=== PATIENT | female | born 1985 | race Hispanic/Latino ===

== ENCOUNTER 2019-04-12 10:52 | Inpatient (IN) | payer OTHER ==
[~2019-04-12] VITALS: Ht 175.3 cm; Wt 86.3 kg
[2019-04-12] MEDS ORDERED: CLONIDINE HCL 0.2 MG TAB PO ONE (11:15)
[2019-04-12] MEDS ORDERED: SODIUM CHLORIDE 0.9% 1000ML 1,000 ML IV STA (12:02)
--- NOTE | 2019-04-12 12:20 | Diagnostic Imaging Report ---
EXAMINATION: CXR 2 VIEW - HOPD INDICATION: Shortness of breath for 2 days ^[id number] ^1205 COMPARISON: None FINDINGS: PA and lateral views TUBES and LINES: None. LUNGS/PLEURA: Bilateral pleural effusions and bibasilar atelectasis. Subtle airspace opacity in the anterior basal segment of the left lower lobe. Trace interstitial edema. HEART AND MEDIASTINUM: The cardiomediastinal silhouette is unremarkable.. BONES AND SOFT TISSUES: No focal osseous lesions. Soft tissues are unremarkable. UPPER ABDOMEN: Unremarkable. IMPRESSION: Bilateral pleural effusions and bibasilar atelectasis. Subtle airspace opacity in the left lower lobe may represent pneumonia. Signed by: Dr. Bryon Billy MD on 04/12/2019 12:16 PM
[2019-04-12] MEDS ORDERED: CEFTRIAXONE SOD 1 GM VIAL IV ONE (12:30)
[2019-04-12] MEDS ORDERED: CLONIDINE HCL 0.1 MG TAB ONE (12:33)
[2019-04-12] MEDS ORDERED: CEFTRIAXONE SOD 1 GM/NS 50 ML 50 ML IV ONE (12:34)
[2019-04-12] MEDS ORDERED: SODIUM CHLORIDE 0.9% 1000ML 1,000 ML ONE (12:34)
[2019-04-12] MEDS ORDERED: ASPIRIN 81 MG CHEW TAB PO ONE (12:45)
[2019-04-12] MEDS ORDERED: ACETAMINOPHEN 325 MG TAB PO ONE (12:45)
[2019-04-12] MEDS ORDERED: NITROGLYCERIN 2% OINT 1 GM PKT TOP ONE (12:45)
[2019-04-12] MEDS ORDERED: ONDANSETRON HCL INJ 2MG/ML 2ML 2 MG/ML VIAL IV PRN (13:00)
[2019-04-12] MEDS ORDERED: ENOXAPARIN SODIUM INJ 100 MG/ML SYR SC SCH (13:00)
[2019-04-12] MEDS ORDERED: FAMOTIDINE 20 MG TAB PO SCH (13:00)
--- OUTSIDE RECORDS SUMMARY | 2019-04-12 13:09 | XMS REPORT ---
Author [facility] Address Unknown Phone Unavailable Care Team Providers Care Filter Changer Name Role Phone Marjan CANDELARIO Unavailable Unavailable Problems This patient has no known problems. Allergies, Adverse Reactions, Alerts This patient has no known allergies or adverse reactions. Medications This patient has no known medications. Results Test Description Test Time Test Comments Text Results Atomic Results Result Comments CXR 2 VIEW - HOPD 2019-04-12 12:15:00 [place] [address] Patient Name: CASS MCCULLOUGH MR #: [id number] : 1985 Age/Sex: 34/F Req #: [id number] [facility] Physician: Ordered by: EDGAR CANDELARIO MD Report #: [id number] Location: [facility] Room/Bed: Procedure: [id number] HOPD/CXR 2 VIEW - HOPD Exam Date: 04/12/19 Exam Time: 1205 REPORT STATUS: Signed EXAMINATION: CXR 2 VIEW - HOPD INDICATION: Shortness of breath for 2 days [id number] COMPARISON: None FINDINGS: PA and lateral views TUBES and LINES: None. LUNGS/PLEURA: Bilateral pleural effusions and bibasilar atelectasis. Subtle airspace opacity in the anterior basal segment of the left lower lobe. Trace interstitial edema. HEART AND MEDIASTINUM: The cardiomediastinal silhouette is unremarkable.. BONES AND SOFT TISSUES: No focal osseous lesions. Soft tissues are unremarkable. UPPER ABDOMEN: Unremarkable. IMPRESSION: Bilateral pleural effusions and bibasilar atelectasis. Subtle airspace opacity in the left lower lobe may represent pneumonia. Signed by: Dr. Frandy Billy MD on 04/12/2019 12:16 PM Dictated By: FRANDY BILLY MD 1216 Transcribed By: AURELIO on 04/12/19 1216 COPY TO: EDGAR CANDELARIO MD
[2019-04-12] MEDS: METOPROLOL TARTRATE 25 MG TAB PO SCH (13:24)
[2019-04-12] MEDS ORDERED: ASPIRIN 81 MG CHEW TAB ONE (13:30)
[2019-04-12] MEDS ORDERED: NITROGLYCERIN 2% OINT 1 GM PKT ONE (13:31)
[2019-04-12] MEDS ORDERED: ACETAMINOPHEN 325 MG TAB ONE (13:31)
[2019-04-12] MEDS ORDERED: FAMOTIDINE 20 MG/2 ML VIAL IV ONE (13:31)
[2019-04-12] MEDS ORDERED: ENOXAPARIN SODIUM INJ 100 MG/ML SYR SC ONE (13:31)
[2019-04-12] MEDS ORDERED: DEXTROSE 50% SYRINGE 50 ML IV PRN ×2 (13:45→22:00)
--- NOTE | 2019-04-12 14:20 | NUR ---
Called [facility] to transport pt to room 212
--- NOTE | 2019-04-12 14:28 | NUR ---
Report to ANTONIA Gamez
[2019-04-12 15:53] VITALS: BP 117/77
[2019-04-12 16:01] VITALS: BP 117/77
[2019-04-12] MEDS: INSULIN REGULAR, HUMAN 100 UNIT/1 ML 3ML VIAL SQ SCH ×2 (16:58→20:57)
[2019-04-12] MEDS: NITROGLYCERIN 2% OINT 1 GM PKT TOP SCH (17:00)
[2019-04-12] MEDS ORDERED: POTASSIUM CHLORIDE 20 MEQ TAB CR PO ONE (19:30)
[2019-04-12 20:00] VITALS: BP 114/80
[2019-04-12 20:30] VITALS: BP 114/80
[2019-04-12] MEDS ORDERED: SODIUM CHLORIDE 0.9% 250ML 250 ML ONE (20:44)
[2019-04-12] MEDS: SIMVASTATIN 40 MG TAB PO SCH (20:57)
[2019-04-12] MEDS: CEFTRIAXONE SOD 1 GM/NS 50 ML 50 ML IV SCH (20:57)
--- NOTE | 2019-04-12 21:00 | NUR ---
attending physician on unit rounding on patient. received new orders for patient.
[2019-04-12 21:14] LABS: BASOPHILS % 0.4 % (0.0-1.0); EOSINOPHILS # (AUTO) 0.2 (0.0-0.4); EOSINOPHILS % 1.7 % (0.0-6.0); HEMATOCRIT 30.2 % (34.2-44.1); HEMOGLOBIN 9.1 g/dL (12.0-16.0); LYMPHOCYTES # (AUTO) 2.9 (1.0-3.2); LYMPHOCYTES % 32.3 % (18.0-39.1); MEAN CORPUSCULAR HEMOGLOBIN 25.3 pg (28-32); MEAN CORPUSCULAR HGB CONC 30.1 g/dL (31-35); MEAN CORPUSCULAR VOLUME 84.1 fL (81-99); MONOCYTES # (AUTO) 0.7 (0.2-0.8); MONOCYTES % 7.3 % (4.4-11.3); NEUTROPHILS # (AUTO) 5.3 (2.1-6.9); PLATELET COUNT 383 x10e3/uL (140-360); RED BLOOD COUNT 3.59 x10e6/uL (3.6-5.1); RED CELL DISTRIBUTION WIDTH 14.6 % (11.7-14.4)
[2019-04-12 21:29] LABS: ANION GAP 18.4 mmol/L (8-16); BLOOD UREA NITROGEN 18 mg/dL (7-26); BUN/CREATININE RATIO 23 (6-25); CALCIUM 8.3 mg/dL (8.4-10.2); CARBON DIOXIDE 19 mmol/L (22-29); CHLORIDE 104 mmol/L (98-107); EST GLOMERULAR FILTRATION RATE > 60 ML/MIN (60-); GLUCOSE 289 mg/dL (74-118); POTASSIUM 4.4 mmol/L (3.5-5.1); SODIUM 137 mmol/L (136-145)
--- NOTE | 2019-04-12 21:30 | NUR ---
Radiology called stating patients need's test in order for CT scan to be done.
[2019-04-12] MEDS: FUROSEMIDE INJ 10 MG/ML 4 ML VIAL IV SCH (21:35)
[2019-04-12] MEDS ORDERED: TRAZODONE HCL 50 MG TAB PO PRN (22:00)
--- NOTE | 2019-04-12 23:30 | NUR ---
Report given to ICU charge nurse. patient has been transferred to ICU for closer observation.
--- NOTE | 2019-04-12 23:35 | NUR ---
Report received from Sean KNIGHT. Pt transferred to ICU room 195.
--- NOTE | 2019-04-12 23:42 | NUR ---
Urine specimen has been collected and sent to laboratory in order for test to be obtained.
[2019-04-12 23:46] LABS: AMPHETAMINES SCREEN,URINE NEGATIVE (NEGATIVE); BENZODIAZEPINES SCREEN,URINE NEGATIVE (NEGATIVE); PHENCYCLIDINE SCREEN,URINE NEGATIVE (NEGATIVE)
[2019-04-13] VITALS (7 sets, daily range): BP systolic 92–133; BP diastolic 60–97
[2019-04-13 00:08] LABS: CREATINE KINASE MB 1.8 ng/mL (0-5.0)
[2019-04-13] MEDS ORDERED: INFLUENZA VIRUS VAC SPLIT INJ 0.5 ML SYR IM SCH (00:11)
[2019-04-13] MEDS: METOPROLOL TARTRATE 25 MG TAB PO SCH ×3 (00:26→21:55)
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
[2019-04-13 05:42] LABS: BASOPHILS % 0.3 % (0.0-1.0); EOSINOPHILS # (AUTO) 0.3 (0.0-0.4); HEMATOCRIT 24.9 % (34.2-44.1); LYMPHOCYTES # (AUTO) 2.4 (1.0-3.2); LYMPHOCYTES % 37.1 % (18.0-39.1); MEAN CORPUSCULAR HEMOGLOBIN 25.5 pg (28-32); MEAN CORPUSCULAR HGB CONC 31.3 g/dL (31-35); MEAN CORPUSCULAR VOLUME 81.4 fL (81-99); MONOCYTES # (AUTO) 0.7 (0.2-0.8); NEUTROPHILS # (AUTO) 3.1 (2.1-6.9); NEUTROPHILS % 47.1 % (38.7-80.0); RED BLOOD COUNT 3.06 x10e6/uL (3.6-5.1); RED CELL DISTRIBUTION WIDTH 14.5 % (11.7-14.4)
[2019-04-13] MEDS: NITROGLYCERIN 2% OINT 1 GM PKT TOP SCH ×4 (05:54→17:55)
[2019-04-13 06:01] LABS: HEMOGLOBIN 7.8 g/dL (12.0-16.0); PLATELET COUNT 323 x10e3/uL (140-360)
[2019-04-13 06:10] LABS: CREATINE KINASE MB 1.3 ng/mL (0-5.0)
--- NOTE | 2019-04-13 06:20 | NUR ---
Pt taken to CT scan of chest with contract and returned pt room without event.
[2019-04-13 06:24] LABS: ANION GAP 12.2 mmol/L (8-16); BLOOD UREA NITROGEN 15 mg/dL (7-26); BUN/CREATININE RATIO 21 (6-25); CALCIUM 8.2 mg/dL (8.4-10.2); CARBON DIOXIDE 24 mmol/L (22-29); CHLORIDE 103 mmol/L (98-107); CHOL/HDL RATIO 4.8 (3.0-3.6); CHOLESTEROL 176 MD/DL (0-199); CREATININE, SERUM 0.71 mg/dL (0.57-1.11); EST GLOMERULAR FILTRATION RATE > 60 ML/MIN (60-); GLUCOSE 213 mg/dL (74-118); HDL CHOLESTEROL 37 MG/DL (40-60); LDL CHOLESTEROL 90 MG/DL (60-130); POTASSIUM 4.2 mmol/L (3.5-5.1); SODIUM 135 mmol/L (136-145); TRIGLYCERIDES 246 MG/DL (0-149)
[2019-04-13] MEDS ORDERED: SODIUM CHLORIDE 0.9% 50ML 50 ML ONE (06:32)
[2019-04-13] MEDS ORDERED: IOPAMIDOL 370 MG/ML 200 ML INFUS..BTL INJ ONE (06:32)
[2019-04-13] MEDS: FUROSEMIDE INJ 10 MG/ML 4 ML VIAL IV SCH ×3 (06:36→21:55)
[2019-04-13] MEDS: ENOXAPARIN SODIUM INJ 100 MG/ML SYR SC SCH ×2 (06:36→17:46)
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
[2019-04-13] MEDS: INSULIN REGULAR, HUMAN 100 UNIT/1 ML 3ML VIAL SQ SCH ×4 (08:34→21:55)
[2019-04-13] MEDS: ASPIRIN 325 MG TAB EC PO SCH (08:41)
[2019-04-13] MEDS: LISINOPRIL 10 MG TAB PO SCH (08:42)
[2019-04-13] MEDS: FAMOTIDINE 20 MG TAB PO SCH ×2 (08:42→21:55)
[2019-04-13] MEDS ORDERED: FUROSEMIDE INJ 10 MG/ML 2 ML VIAL IV SCH (09:00)
[2019-04-13] MEDS: ACETAMINOPHEN 325 MG TAB PO PRN (12:03)
--- NOTE | 2019-04-13 13:18 | NUR ---
dr. barry called and notified of new consult ordered yesterday.
--- NOTE | 2019-04-13 15:57 | NUR ---
PT NOT IN ROOM IN MRI UNABLE TO DO DISCHARGE PLAN ASSESSMENT
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
[2019-04-13] MEDS: CEFTRIAXONE SOD 1 GM/NS 50 ML 50 ML IV SCH ×2 (19:30→21:55)
--- NOTE | 2019-04-13 19:56 | NUR ---
Nutrition Screen Note RD Recommendation for Physician: -Recommend diabetic/low sodium diet Plan of Care: RD following, monitoring for tolerance and adequacy Nutrition reason for involvement: diagnosis congestive cardiac failure Primary Diagnose(s): congestive cardiac failure, cystitis, myocardial infarction, pneumonia, and UTI PMH: diabetes, HTN, HLD Ht: 69 in Wt:194 lb BMI: 28.6 kg/m2 IBW:[address] Assessment: (04/13/19) Chart reviewed. Labs and meds reviewed. Pt is a 34 year old female admitted with congestive cardiac failure, cystitis, myocardial infarction, pneumonia, and UTI. Pt stated she has been eating >50% of her meals. Per documentation, pt consumed 50-75% of meals today. Pt reported she had recently gained weight. No N/V/D/C reported and no chewing/swallowing issues. Will continue to monitor Current Diet: 1800 kcal ADA diet Malnutrition Evaluation (04/13/19) The patient does not meet criteria for a specified degree of malnutrition at this time. Will re-evaluate at follow-up as appropriate. Diet Education Needs Assessment: Pt was interested in diet education Learner(s): pt Barriers: 5 minutes Cultural/Language Modifications: No cultural/language modifications noted. Readiness: acceptance, eager Method: explanation/discussion, handout Topics: diabetic diet and low sodium diet Understanding/Compliance: Pt verbalized understanding Nutrition Care Level: low Signed: Sonja Ram, RD, LD
[2019-04-13] MEDS ORDERED: IRON SUCROSE 100 MG in SODIUM CHLORIDE 0.9% 100 ML 100 ML IV ONE (20:30)
[2019-04-13 21:27] LABS: FERRITIN 7.29 ng/mL (4.63-204.00)
[2019-04-13] MEDS: SIMVASTATIN 40 MG TAB PO SCH (21:55)
[2019-04-13] MEDS ORDERED: TRAZODONE HCL 50 MG TAB PO ONE (22:30)
[2019-04-14] VITALS (13 sets, daily range): BP systolic 93–120; BP diastolic 64–87
--- NOTE | 2019-04-14 00:08 | Consultation ---
DATE OF CONSULTATION: 04/13/2019 Neurology Consult Note HISTORY OF PRESENT ILLNESS: Ms. Ramos is a 34-year-old woman with past medical history significant for hypertension and diabetes mellitus, not compliant with treatment, admitted to [facility] as an inpatient on April 12, 2019, with non-ST elevation myocardial infarction, acute on chronic congestive heart failure, bilateral pleural effusions, and possible pneumonia. A neurology consultation is requested for further evaluation of weakness and paresthesias affecting both arms. Ms. Ramos reports a tingling sensation from her shoulders to her wrists with sparing of the hands. While both arms are affected, the left arm is significantly more affected than the right. Occasionally, Ms. Ramos reports the tingling sensation will travel to her legs. However, the patient is quick to state the symptoms predominantly affect her arms. Ms. Ramos describes the tingling sensation is intermittent. She is not aware of any triggers for the sensation. There is nothing she can do to stop the tingling sensation. Of note, while Ms. Ramos does report a compulsion to move her arms or legs when the tingling sensation is present, movement does not improve the symptoms. Ms. Ramos does report the above described symptoms are more likely to occur in the late afternoon/throughout the night. When asked whether or not she has weakness in her hands or arms, the patient responds in the affirmative. When pressed, the patient reports she has no difficulty performing fine motor movements of the hands as well as other movements of the arms. However, she, she reports a heavy sensation affecting both arms. Ms. Ramos reports the above described symptoms began approximately 2 months ago and are gradually worsening. Ms. Ramos does not report neck pain. She does endorse occasional radicular pain affecting either arm. The patient does report participation in tasks requiring repetitive movement (i.e. typing, texting, cooking, etc.) REVIEW OF SYSTEMS: Fast heartbeat, shortness of breath, tingling of the arms and legs, radicular pain affecting either arm. Otherwise, a 12-point review of systems is negative. PAST MEDICAL HISTORY: Hypertension, diabetes mellitus, anxiety disorder. PAST SURGICAL HISTORY: section x1. PAST HOSPITALIZATIONS: Surgeries/procedures as listed, childbirth, hospitalized in 2018 with pneumonia. FAMILY MEDICAL HISTORY: Hypertension, diabetes mellitus, coronary artery disease, gastrointestinal cancer. SOCIAL HISTORY: The patient is single. Ms. Ramos is employed. 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 The patient does not report current or prior tobacco or recreational drug use. She does endorse rare alcohol use. HOME MEDICATIONS: None. Ms. Ramos reports not taking any medications for the past 2-3 months. HOSPITAL MEDICATIONS: Tylenol, aspirin, ceftriaxone, Lovenox, Pepcid, Lasix, influenza virus vaccine, Humulin R, lisinopril, metoprolol tartrate, nitroglycerin, Zofran, simvastatin, trazodone. ALLERGIES: NO KNOWN DRUG ALLERGIES. NO KNOWN FOOD ALLERGIES. NO KNOWN ALLERGIES TO LATEX. NO KNOWN ALLERGIES TO IODINE OR OTHER CONTRAST MATERIALS. PHYSICAL EXAMINATION: VITAL SIGNS: Height 69 inches, weight 194 pounds, BMI 28.6 kg/m2, blood pressure 112/97 mmHg, pulse 108 beats per minute, respiratory rate 18 breaths per minute, and oxygen saturation 95% on room air. GENERAL: The patient is awake and alert, does not appear distressed. Overweight. HEENT: Normocephalic, atraumatic. Pupils are equal, round, and reactive to light. Moist mucous membranes. NECK: Supple. No appreciable thyromegaly. No appreciable carotid bruits. CARDIOVASCULAR: S1, S2, tachycardic, regular rhythm. No murmurs, rubs, or gallops. RESPIRATORY: Diminished air movement at the bases bilaterally. EXTREMITIES: Skin is warm and dry. No clubbing, cyanosis, or edema. The posterior tibial and dorsalis pedis pulses are 2+ and symmetric. Positive Tinel's at the left cubital tunnel. SKIN: No rashes or lesions. NEUROLOGIC: Memory/Attention: The patient is awake and alert, oriented to person, place, time, and situation. Cranial Nerves: Cranial nerve I - not tested. Cranial nerve II, III, IV, and - pupils are equal and round, reactive briskly to light (from 4 mm to 2 mm). Extraocular movements are intact. No nystagmus. Cranial nerve V - sensation to light touch and pinprick is intact in the bilateral V1 through V3 distributions. Strength in the temporalis and masseter muscles is within normal limits. Cranial nerve VII - the face is symmetric as are all facial movements. Strength is within normal limits. Cranial nerve VIII - hearing is intact to finger rub bilaterally. Cranial nerve IX, X- the soft palate elevates equally and symmetrically. Cranial nerve XI - normal strength of the bilateral sternocleidomastoid and trapezius muscles. Cranial nerve XII- the tongue protrudes midline and moves symmetrically from [id number]. Strength: Bulk is normal. Strength is 5/5 in the bilateral deltoids, biceps, triceps, wrist flexors and extensors, finger flexors and extensors, intrinsic hand muscles, hip flexors, knee flexors and extensors, ankle dorsiflexion and plantar flexion, and intrinsic foot muscles. Tone is normal. DTRs: Deep tendon reflexes are 1+ and symmetric at the triceps, biceps, brachioradialis, patellas, and Achilles. Plantar responses are flexor bilaterally. Sensation: Sensation is intact to light touch and pinprick in both arms and both legs. Cerebellar: Gsczsy-coqd-opkixm and heel-webber movements are intact without dysmetria or other impairment. Gait: Deferred. Speech: Spontaneous speech is normal without appreciable dysarthria or aphasia. Repetition is intact. Involuntary movements: None. Pronator Drift: None. LABORATORY DATA: The most recent comprehensive metabolic panel is significant for a sodium of 135, glucose of 213, calcium of 8.2. Creatine kinase 97, 96, 60. CK- MB 2.00, 1.80, 1.30. Troponin I 1.798, 1.899, 1.776, 2.081. Total cholesterol 176, triglycerides 246, LDL cholesterol 90, HDL cholesterol 27. Hemoglobin A1c 10.4. TSH 1.781. B-natriuretic peptide 547.1. The CBC with differential and platelets reveals a white blood cell count of 6.57 with a normal differential. The hemoglobin and hematocrit are 7.8 and 24.9, respectively. The platelet count is 323. A urine test was negative. A urine drug screen was negative. DIAGNOSTIC STUDIES: 1. Electrocardiogram 04/12/2019: Sinus tachycardia at 119 beats per minute. 2. Chest x-ray 04/12/2019: Bilateral pleural effusions with bibasilar atelectasis. Subtle airspace opacity in the left lower lobe may represent pneumonia. 3. CT of the chest 04/12/2019: 4. 1. Moderate sized bilateral pleural effusions with adjacent compressive atelectasis. 5. 2. A 3.9 cm cavitary lesion in the left lower lobe. 6. 3. Bilateral mid to lower lung field, mostly linear airspace opacities with some air bronchograms, most likely atelectasis versus scarring, although underlying pneumonia cannot be entirely excluded. 7. 4. Nondisplaced fracture of the anterolateral right second rib versus artifact from motion. Enlarged indeterminate mediastinal lymph nodes. 8. Echocardiogram 04/13/2019: Ejection fraction 25-30 percent. Severe left global hypokinesis. Bilateral pleural effusions. 9. Bilateral carotid artery ultrasound with Doppler 04/13/2019: There is no evidence of hemodynamically significant stenosis in either carotid artery system. Flow is antegrade in the bilateral vertebral arteries. 10. 11. MRI of the brain without contrast 04/13/2019: On my review, there is no evidence of recent or remote large territorial ischemia, hemorrhage, mass, or mass effect. Cerebral volumes are appropriate for age. There are no findings to suggest chronic small-vessel ischemic disease. 12. MRI of the cervical spine 04/13/2019, on my review, there is no evidence of acute or subacute traumatic injury. Cervical spinal cord is normal in size and signal intensity. There is no evidence of spinal canal or foraminal stenoses. ASSESSMENT AND PLAN: Ms. Ramos is a 34-year-old woman with hypertension and diabetes mellitus-not compliant with treatment-admitted to [facility] as an inpatient on April 12, 2019, with a non ST elevation myocardial infarction, acute on chronic congestive heart failure, bilateral pleural effusions, and possible pneumonia. The Neurology Service is consulted for weakness and paresthesias affecting both arms; those symptoms are detailed fully in the history of present illness. At present, the patient's neurological examination is nonfocal. Her strength is full in all muscles examined in both arms. Sensation is intact to light touch and pinprick in both arms. There does not appear to be depression or exaggeration of the deep tendon reflexes in the arms. The patient's laboratory data and other diagnostic studies have been reviewed and are documented above. At this time, further evaluation with an NCV/EMG of both arms as an outpatient is recommended. This study will evaluate for compression neuropathy/neuropathies and/or cervical radiculopathy/radiculopathies. If the NCV/EMG is unremarkable, I would consider evaluation and treatment for a variant of restless legs syndrome. There are no other recommendations from the Neurology Service at this time. Please call again with any questions or concerns. TIME SPENT: 70 minutes. Mimi Noe MD CP/ELLIOT /[id number] MTDD
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
--- NOTE | 2019-04-14 02:54 | Consultation ---
DATE OF CONSULTATION: 04/13/2019 CONSULTING PHYSICIAN: Stacy Kent, Hematology-Oncology service. REASON FOR CONSULTATION: Evaluation and management of patient with anemia. HISTORY OF PRESENTING ILLNESS: Ms. Ramos is a very pleasant 34-year-old female with known history of hypertension, hyperlipidemia, and diabetes mellitus, presents to the emergency department due to shortness of breath. In the emergency department, she underwent workup revealing anemia with a hemoglobin of 9. CT scan of the chest was performed revealing moderate-sized bilateral pleural effusion and 3.9 cm cavitary lesion in the left lower lobe. CT also demonstrated some interstitial opacities concerning for pneumonia. The patient was started on antibiotics. The patient was seen and evaluated by Pulmonary Service and placed in isolation due to concern of tuberculosis. This morning, patient hemoglobin also dropped from 9 to 7 range, subsequently Hematology-Oncology has been consulted to assist with the management. Presently, the patient is sitting comfortably, not in acute distress, breathing normally. She denies any nausea, vomiting, fever, chills, headache, or blurring of vision. She denies any bleeding per rectum or history of bleeding. However, as mentioned that she has been having menorrhagia and menometrorrhagia. PAST MEDICAL HISTORY: 1. Hypertension. 2. Hyperlipidemia. 3. Diabetes mellitus. 4. Menorrhagia. PAST SURGICAL HISTORY: None. SOCIAL HISTORY: Denies history of smoking, alcohol use, or illicit drug use. FAMILY HISTORY: Negative for hematologic disorder. ALLERGIES: NO KNOWN DRUG ALLERGIES. CURRENT MEDICATIONS: Reviewed as per electronic medical record. REVIEW OF SYSTEMS: A 14-point review of systems negative except as mentioned per history of presenting illness. PHYSICAL EXAMINATION: VITAL SIGNS: Reviewed as per electronic medical record. HEENT: PERRLA. Extraocular movement intact. Head is atraumatic and normocephalic. NECK: Supple. CV: S1, S2 audible. RESPIRATORY: Decreased bilateral air entry. ABDOMEN: Soft. Positive bowel sounds. EXTREMITIES: Negative edema. NEURO: The patient is alert, awake. LABORATORY DATA: Reviewed as per electronic medical record. ASSESSMENT AND PLAN: Ms. Ramos is a very pleasant 34-year-old young female with known history of hypertension, hyperlipidemia, and type 2 diabetes mellitus, presents to the emergency department due to progressive shortness of breath. She underwent workup revealing anemia receiving one drop in count today. She also underwent a CT scan of the chest revealing 3.9 cm cavitary lesion in the left lower lung along with a moderate-sized bilateral pleural effusion concerning for infectious process. She was seen and evaluated by Pulmonary Service and is placed on isolation with the concern of tuberculosis. Due to progressive shortness of breath, she underwent echocardiogram and seen by Cardiology. Echo showed ejection fraction 25% to 30% with severe left ventricular global hypokinesia. This morning, she had a significant drop in count, subsequently Hematology-Oncology has been consulted to assist with the management. I have reviewed the records and discussed at length with the patient about her current disease and importance of further workup. Cause of anemia is uncertain, but appeared to be iron deficiency anemia secondary to blood volume loss as the patient has a history of menorrhagia and menometrorrhagia. At this point, recommendation would be to get baseline workup, specifically anemia panel and I will start patient on IV iron infusion. I will also rule out hemolytic component of anemia. Depending on the result, we will provide further recommendation. Meanwhile count is in reasonable range, so we will closely monitor. If it drops further, then we will consider transfusion, though I am expecting it to improve with IV iron. Right lower lobe cavitary lesion. The patient is undergoing workup to rule out tuberculosis. Less likely malignant, but still a possibility. However, I will review the imaging done last year at [facility]. Thank you for the consult. I will continue to be available. Please call with questions. MD KEIKO Altman/ELLIOT /[id number]
--- NOTE | 2019-04-14 04:45 | Consultation ---
DATE OF CONSULTATION: 04/13/2019 Pulmonary Medicine Consult REASON FOR REFERRAL: Abnormal chest radiography. HISTORY OF PRESENT ILLNESS: Ms. Ramos is a pleasant 34-year-old female with abnormal chest radiography. The patient presented to [facility] on April 12, 2019, with shortness of breath. The patient had symptoms similar to previous. However, the patient was in a pattern of not improvement. She is known to be very noncompliant with her medical care in the past. She was admitted through hospital with CHF exacerbation, found with systolic pump failure. The patient claims she was born normally. She had diabetes at age 15. The patient had pneumonia a couple years ago and was stayed in the hospital for 5 days. At that time, the patient possibly gave up sputum for mycobacterial assessment, but she does not clearly recall any cavitary lung disease. The patient now is complaining of phlegm for one week. Some chills. No fevers. She has had no weight changes and still has reasonable appetite. There is some kind of pleurisy noted. She proceed to a chest x-ray, which shows bilateral effusion and possible right pneumonia. She goes for CT chest which demonstrates bilateral moderate pleural effusion, but bilateral semi-consolidative lung opacities at bases including a moderate-sized cavity of the left lung, I am consulted. PAST MEDICAL HISTORY: CHF, hypertension, diabetes, . MEDICATIONS: Medication list reviewed per the chart record. ALLERGIES: NO KNOWN DRUG ALLERGIES. SOCIAL HISTORY: No smoking. No drinking. No drugs. She is born in [place] and mainly lives in [place] her entire life. There are rare trips to [place]. FAMILY HISTORY: Noncontributory to this condition. REVIEW OF SYSTEMS: GENERAL: No malaise. OPHTHALMOLOGIC: No vision changes. ENT: No mouth ulcers. ENDOCRINE: No thyroid disease known. LUNGS: No asthma. CARDIAC: No heart attack. GI: No constipation. : No recent stones. PSYCHIATRIC: No depression. NEUROLOGIC: No seizures. DERMATOLOGIC: No rashes. OBJECTIVE: VITAL SIGNS: Currently afebrile, vital signs noted, reviewed per the chart record. GENERAL: In no acute distress, alert, calm and talkative. HEENT: Normocephalic, atraumatic. Slightly congested nares. NECK: Supple, throat midline. Neck, enlarge wide. RESPIRATORY: Bilateral air entry, rare rhonchi. CARDIOVASCULAR: S1 and S2. No murmurs, rubs, or gallops. ABDOMEN: Soft, nontender, obese. EXTREMITIES: No clubbing, no cyanosis. There is trace edema. INTEGUMENT: No rash, no purpura. LABORATORY DATA: 4.2 potassium, 15 BUN, creatinine 0.7. 6.7 white count, 25 hematocrit, 323 platelets. IMPRESSION AND PLAN: 1. Cavitary pneumonitis. Possibly chronic based on reports of some initial assessment. 2. Bilateral pneumonitis. 3. Congestive heart failure with exacerbation. Acute on chronic systolic failure. 4. Large neck size, congested nasopharynx. Significant consideration for obstructive sleep apnea in a cardiac patient. 5. Hypertension. 6. Chronically uncontrolled diabetes with blood sugars sometimes in 400 at baseline. 7. Functionally immunosuppressed state. 8. Anemia. At this time, we will request sputum AFB and regular sputum cultures. Get old records from outside hospital to assess what was done already. The patient denies having a bronchoscopy done and she may eventually require endoscopic evaluation. She is chronically noncompliant and she is urge to follow up and follow through with medical care. Check hemoglobin A1c, HIV status, LDH, sedimentation rate, LFTs, and reticulocyte count to see if we are dealing with slowly intrapulmonary process versus multiorgan process. Outpatient in-lab sleep studies are recommended due to advanced heart failure. The patient should have her diabetes and functional immunosuppression controlled over manager intermediate. Thank you very much, Dr. Ram for allowing me a chance to participate in care of Ms. Ramos. Please call for questions. MD LEXX Seay/ELLIOT /[id number] CHANDLER
[2019-04-14] MEDS: ONDANSETRON HCL INJ 2MG/ML 2ML 2 MG/ML VIAL IV PRN (04:55)
[2019-04-14] MEDS: ENOXAPARIN SODIUM INJ 100 MG/ML SYR SC SCH (05:00)
[2019-04-14] MEDS: FUROSEMIDE INJ 10 MG/ML 4 ML VIAL IV SCH ×3 (05:00→22:14)
[2019-04-14 05:28] LABS: BASOPHILS % 0.5 % (0.0-1.0); EOSINOPHILS # (AUTO) 0.1 (0.0-0.4); EOSINOPHILS % 1.2 % (0.0-6.0); HEMATOCRIT 25.9 % (34.2-44.1); LYMPHOCYTES # (AUTO) 2.1 (1.0-3.2); LYMPHOCYTES % 25.8 % (18.0-39.1); MEAN CORPUSCULAR HEMOGLOBIN 24.9 pg (28-32); MEAN CORPUSCULAR HGB CONC 30.9 g/dL (31-35); MEAN CORPUSCULAR VOLUME 80.7 fL (81-99); MONOCYTES # (AUTO) 0.8 (0.2-0.8); MONOCYTES % 10.2 % (4.4-11.3); NEUTROPHILS % 62.1 % (38.7-80.0); PLATELET COUNT 372 x10e3/uL (140-360); RED BLOOD COUNT 3.21 x10e6/uL (3.6-5.1); RED CELL DISTRIBUTION WIDTH 14.3 % (11.7-14.4)
[2019-04-14 05:50] LABS: HIV 1&2 AB SCREEN NON-REACTIVE (NONREACTIVE)
[2019-04-14 05:51] LABS: ALBUMIN 3.1 g/dL (3.5-5.0); BILIRUBIN,DIRECT 0.1 mg/dL (0.0-0.5)
[2019-04-14 05:53] LABS: ANION GAP 15.2 mmol/L (8-16); BLOOD UREA NITROGEN 14 mg/dL (7-26); BUN/CREATININE RATIO 17 (6-25); CALCIUM 8.4 mg/dL (8.4-10.2); CARBON DIOXIDE 25 mmol/L (22-29); CHLORIDE 100 mmol/L (98-107); CREATININE, SERUM 0.84 mg/dL (0.57-1.11); EST GLOMERULAR FILTRATION RATE > 60 ML/MIN (60-); GLUCOSE 211 mg/dL (74-118); POTASSIUM 4.2 mmol/L (3.5-5.1); SODIUM 136 mmol/L (136-145)
[2019-04-14 05:56] LABS: CREATINE KINASE MB 0.7 ng/mL (0-5.0)
[2019-04-14] MEDS: NITROGLYCERIN 2% OINT 1 GM PKT TOP SCH ×4 (06:00→18:53)
[2019-04-14 06:43] LABS: ERYTHROCYTE SEDIMENTATION RATE 63 mm/hr (0-20)
[2019-04-14] MEDS: INSULIN REGULAR, HUMAN 100 UNIT/1 ML 3ML VIAL SQ SCH ×4 (09:07→20:57)
[2019-04-14] MEDS: FAMOTIDINE 20 MG TAB PO SCH ×2 (09:22→20:57)
[2019-04-14] MEDS: ASPIRIN 325 MG TAB EC PO SCH (09:22)
[2019-04-14] MEDS: LISINOPRIL 10 MG TAB PO SCH (09:50)
[2019-04-14] MEDS: METOPROLOL TARTRATE 25 MG TAB PO SCH ×2 (09:50→20:57)
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
--- NOTE | 2019-04-14 12:47 | Diagnostic Imaging Report ---
EXAM: CHEST SINGLE (PORTABLE) DATE: 04/14/2019 9:23 AM INDICATION: CHF COMPARISON: 04/12/2019 Impression: Again identified are stable bilateral pleural effusions with associated atelectasis of the lower lobes. There is a cavitary lesion identified within the left lower lobe better evaluated on the recent prior CT examination. There is no evidence for pneumothorax. The cardiomediastinal silhouette is stable in appearance. No acute osseous abnormality is identified. Signed by: Dr. Ryan Silverman MD on 04/14/2019 12:43 PM
--- NOTE | 2019-04-14 12:54 | NUR ---
dr. Ram updated with cxr report from today. no new orders. continue with lasix as ordered. strict5 I&O's. fluid restriction of 1.2L
[2019-04-14 15:15] LABS: CREATINE KINASE MB 0.9 ng/mL (0-5.0)
--- NOTE | 2019-04-14 16:58 | NUR ---
per Dr. Reese, heart cath on hold for next few days.
[2019-04-14] MEDS ORDERED: ENOXAPARIN SODIUM INJ 100 MG/ML SYR SC SCH (17:00)
[2019-04-14] MEDS ORDERED: IRON SUCROSE 100 MG in SODIUM CHLORIDE 0.9% 100 ML 100 ML IV ONE (18:15)
[2019-04-14] MEDS: ENOXAPARIN SOD INJ 40 MG/0.4 ML SYR SC SCH (18:53)
[2019-04-14] MEDS: ACETAMINOPHEN 325 MG TAB PO PRN (18:54)
--- NOTE | 2019-04-14 20:45 | Progress Note ---
DATE: 04/14/2019 Cardiology Progress Note SUBJECTIVE: The patient is seen in ICU. Hemoglobin is 8 g percent. The patient is followed very closely by shrub planter and the patient is hemodynamically stable. The patient, I believe has a cavitary lesion in the right lung, being investigated by director facilities maintenance. Cardiac-flores, the following diagnoses are: 1. Non-Q myocardial infarction. 2. Congestive heart failure, LVEF of about 30%. The patient has no symptoms. Troponin 1.2. The patient has nonspecific ST changes noted. The patient is quite comfortable without any significant breathing problems or chest pain. I am not doing heart catheterization at least for a couple of days until the lung issue is resolved. I will do it if the patient develops any significant chest pain. In the meantime, we will keep a watch on the hemoglobin. I cut down the Lovenox to 40 mg subcu and in the meantime, continue all her present medications. MD ALIYAH Massey/ELLIOT /[id number]
[2019-04-14] MEDS: CEFTRIAXONE SOD 1 GM/NS 50 ML 50 ML IV SCH (20:56)
[2019-04-14] MEDS: SIMVASTATIN 40 MG TAB PO SCH (20:57)
[2019-04-15] VITALS (10 sets, daily range): BP systolic 100–130; BP diastolic 65–82
[2019-04-15] MEDS: NITROGLYCERIN 2% OINT 1 GM PKT TOP SCH ×2 (00:58→05:44)
--- NOTE | 2019-04-15 01:11 | NUR ---
Pulmonary Medicine DATE 04/14/2019 SUBJECTIVE 100% oxygen saturation 3 L per minute by nasal cannula Patient with intermittent coughing still Breathing stable REVIEW OF SYSTEMS: No headaches, no rash OBJECTIVE: VITAL SIGNS: vital signs noted, reviewed per the chart record. GENERAL: no acute distress, alert, calm and talkative. HEENT: Normocephalic, atraumatic. NECK: Supple, throat midline. Neck, enlarge wide. RESPIRATORY: Bilateral air entry, rare rhonchi. CARDIOVASCULAR: S1 and S2. No murmurs, rubs, or gallops. ABDOMEN: Soft, nontender, obese. EXTREMITIES: No clubbing, no cyanosis. trace edema. INTEGUMENT: No rash, no purpura. LABORATORY DATA: 4.2 potassium, 14 BUN, creatinine 0.84. A white count, 26 hematocrit, 372 platelets. IMPRESSION AND PLAN: 1. Cavitary pneumonitis. Possibly chronic based on reports of some initial assessment at outside hospital. Unknown acute components 2. Bilateral pneumonitis. 3. Congestive heart failure with exacerbation. Acute on chronic systolic failure. 4. Large neck size, congested nasopharynx. Significant consideration for LELAND 5. Hypertension. 6. Chronically uncontrolled diabetes with blood sugars sometimes in 400 at baseline. 7. Functionally immunosuppressed state. 8. Anemia. Airborn precautions Await new sputum AFB / regular sputum cultures. Await old records from outside hospital to assess what was done already. -patient never had bronchoscopy HIV negative LDH 194, sedimentation rate 63, LFTs ok Outpatient in-lab sleep studies are recommended due to advanced heart failure. The patient should have her diabetes and functional immunosuppression controlled over director long term care. Thank you very much, Dr. Ram for allowing me a chance to participate in care of Ms. Ramos. Please call for questions.
[2019-04-15 05:31] LABS: BASOPHILS % 0.3 % (0.0-1.0); EOSINOPHILS # (AUTO) 0.1 (0.0-0.4); EOSINOPHILS % 0.7 % (0.0-6.0); HEMATOCRIT 25.4 % (34.2-44.1); LYMPHOCYTES # (AUTO) 1.6 (1.0-3.2); LYMPHOCYTES % 23.5 % (18.0-39.1); MEAN CORPUSCULAR HEMOGLOBIN 25.4 pg (28-32); MEAN CORPUSCULAR HGB CONC 31.5 g/dL (31-35); MEAN CORPUSCULAR VOLUME 80.6 fL (81-99); MONOCYTES # (AUTO) 0.8 (0.2-0.8); MONOCYTES % 11.5 % (4.4-11.3); NEUTROPHILS # (AUTO) 4.3 (2.1-6.9); NEUTROPHILS % 63.6 % (38.7-80.0); PLATELET COUNT 354 x10e3/uL (140-360); RED BLOOD COUNT 3.15 x10e6/uL (3.6-5.1); RED CELL DISTRIBUTION WIDTH 14.1 % (11.7-14.4)
[2019-04-15] MEDS: ENOXAPARIN SOD INJ 40 MG/0.4 ML SYR SC SCH ×2 (05:44→16:54)
[2019-04-15] MEDS: FUROSEMIDE INJ 10 MG/ML 4 ML VIAL IV SCH (05:44)
[2019-04-15] MEDS: ONDANSETRON HCL INJ 2MG/ML 2ML 2 MG/ML VIAL IV PRN (06:08)
[2019-04-15 06:09] LABS: ALANINE AMINOTRANSFERASE 11 IU/L (0-55); ALBUMIN 3.1 g/dL (3.5-5.0); ALKALINE PHOSPHATASE 80 IU/L (40-150); ANION GAP 13.6 mmol/L (8-16); BLOOD UREA NITROGEN 14 mg/dL (7-26); BUN/CREATININE RATIO 19 (6-25); CARBON DIOXIDE 25 mmol/L (22-29); CHLORIDE 101 mmol/L (98-107); CREATININE, SERUM 0.73 mg/dL (0.57-1.11); EST GLOMERULAR FILTRATION RATE > 60 ML/MIN (60-); GLUCOSE 209 mg/dL (74-118); POTASSIUM 3.6 mmol/L (3.5-5.1); SODIUM 136 mmol/L (136-145)
[2019-04-15] MEDS: INSULIN REGULAR, HUMAN 100 UNIT/1 ML 3ML VIAL SQ SCH ×4 (07:57→22:10)
[2019-04-15] MEDS: ASPIRIN 325 MG TAB EC PO SCH (08:02)
[2019-04-15] MEDS: METOPROLOL TARTRATE 25 MG TAB PO SCH ×2 (08:02→22:06)
[2019-04-15] MEDS: DOCUSATE SODIUM 100 MG CAP PO SCH (08:02)
[2019-04-15] MEDS: FAMOTIDINE 20 MG TAB PO SCH ×2 (08:03→22:06)
[2019-04-15] MEDS: LISINOPRIL 10 MG TAB PO SCH (08:03)
--- NOTE | 2019-04-15 08:16 | Diagnostic Imaging Report ---
EXAM: CHEST SINGLE (PORTABLE) DATE: 04/15/2019 5:00 AM INDICATION: Shortness of breath, pulmonary edema COMPARISON: 04/14/2019 Impression: There is a small right pleural effusion, slightly more prominent than the prior examination. There are right lower lung zone opacities which may reflect atelectasis. Stable trace left-sided pleural fusion noted. Stable opacity noted within the left lower lung zone which was noted to be a cavitary lesion on the prior CT chest examination. There is no evidence for pneumothorax. The cardiomediastinal silhouette is stable in appearance. No acute osseous abnormality identified. Signed by: Dr. Ryan Silverman MD on 04/15/2019 8:13 AM
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
[2019-04-15] MEDS ORDERED: POTASSIUM CHLORIDE 20 MEQ TAB CR PO NR (13:30)
[2019-04-15] MEDS ORDERED: FUROSEMIDE INJ 10 MG/ML 4 ML VIAL IV SCH (21:00)
[2019-04-15] MEDS ORDERED: IRON SUCROSE 100 MG in SODIUM CHLORIDE 0.9% 100 ML 100 ML IV ONE (21:45)
[2019-04-15] MEDS: CEFTRIAXONE SOD 1 GM/NS 50 ML 50 ML IV SCH (22:05)
[2019-04-15] MEDS: SIMVASTATIN 40 MG TAB PO SCH (22:06)
[2019-04-16] VITALS (8 sets, daily range): BP systolic 106–132; BP diastolic 62–87
--- NOTE | 2019-04-16 01:32 | NUR ---
Pulmonary Medicine DATE 04/15/2019 SUBJECTIVE patient with 2nd AFB sample submitted today -different collections REVIEW OF SYSTEMS: No headaches, no rash OBJECTIVE: VITAL SIGNS: vital signs noted, reviewed per the chart record. GENERAL: no acute distress, alert, calm and talkative. HEENT: Normocephalic, atraumatic. NECK: Supple, throat midline. Neck, enlarge wide. RESPIRATORY: Bilateral air entry, rare rhonchi. CARDIOVASCULAR: S1 and S2. No murmurs, rubs, or gallops. ABDOMEN: Soft, nontender, obese. EXTREMITIES: No clubbing, no cyanosis. trace edema. INTEGUMENT: No rash, no purpura. LABORATORY DATA: 3.6 k, cr 0.73 cr. wbc 6.8, hct 25, plt 354 IMPRESSION AND PLAN: 1. Cavitary pneumonitis. Possibly chronic based on reports of some initial assessment at outside hospital. Unknown acute components 2. Bilateral pneumonitis. 3. Congestive heart failure with exacerbation. Acute on chronic systolic failure LVEF 25-30%. 4. Large neck size, congested nasopharynx. Significant consideration for LELAND 5. Hypertension. 6. Chronically very uncontrolled diabetes 7. Functionally immunosuppressed state. 8. Anemia. 9. chronically non-adherent to therapy recommendations Airborne precautions Await sputum AFB / regular sputum cultures. Await old records from outside hospital to assess what was done already. -patient never had bronchoscopy and requires consideration for this which could be outpatient. However i recommend AFB smear assessments and acquiring the patient demographics accurately while inpatient. HIV negative LDH 194, sedimentation rate 63, LFTs ok Outpatient in-lab sleep studies are recommended due to advanced heart failure. The patient should have her diabetes and functional immunosuppression controlled over long goods drier. Thank you very much, Dr. Ram for allowing me a chance to participate in care of Ms. Ramos. Please call for questions.
--- NOTE | 2019-04-16 01:48 | NUR ---
pulmonary Reviewed CXR from earlier CXR with worsened appearance of effusion. Lasix has subsequently been decreased. rec: check US, consider US thoracentesis by IR
[2019-04-16 05:41] LABS: BASOPHILS % 0.3 % (0.0-1.0); EOSINOPHILS # (AUTO) 0.2 (0.0-0.4); EOSINOPHILS % 3.6 % (0.0-6.0); HEMATOCRIT 28.2 % (34.2-44.1); HEMOGLOBIN 8.7 g/dL (12.0-16.0); LYMPHOCYTES # (AUTO) 2.7 (1.0-3.2); MEAN CORPUSCULAR HEMOGLOBIN 25.5 pg (28-32); MEAN CORPUSCULAR HGB CONC 30.9 g/dL (31-35); MEAN CORPUSCULAR VOLUME 82.7 fL (81-99); MONOCYTES # (AUTO) 0.9 (0.2-0.8); MONOCYTES % 13.1 % (4.4-11.3); NEUTROPHILS # (AUTO) 2.8 (2.1-6.9); NEUTROPHILS % 42.2 % (38.7-80.0); PLATELET COUNT 357 x10e3/uL (140-360); RED BLOOD COUNT 3.41 x10e6/uL (3.6-5.1); RED CELL DISTRIBUTION WIDTH 14.5 % (11.7-14.4)
[2019-04-16 05:48] LABS: INR 0.97; PROTHROMBIN TIME 13.4 seconds (11.9-14.5)
[2019-04-16 05:49] LABS: PARTIAL THROMBOPLASTIN TIME 29.5 seconds (23.8-35.5)
[2019-04-16 06:00] LABS: ANION GAP 12.8 mmol/L (8-16); BLOOD UREA NITROGEN 16 mg/dL (7-26); BUN/CREATININE RATIO 21 (6-25); CALCIUM 8.7 mg/dL (8.4-10.2); CARBON DIOXIDE 27 mmol/L (22-29); CHLORIDE 99 mmol/L (98-107); CREATININE, SERUM 0.75 mg/dL (0.57-1.11); EST GLOMERULAR FILTRATION RATE > 60 ML/MIN (60-); GLUCOSE 180 mg/dL (74-118); POTASSIUM 3.8 mmol/L (3.5-5.1); SODIUM 135 mmol/L (136-145)
[2019-04-16 07:20] LABS: ALBUMIN 3.1 g/dL (3.5-5.0); BILIRUBIN,DIRECT 0.1 mg/dL (0.0-0.5)
--- NOTE | 2019-04-16 08:27 | Diagnostic Imaging Report ---
Chest, 1 view, 04/16/2019. History: Shortness of breath. Comparison: 04/15/2019. Findings: The cardiomediastinal silhouette and pulmonary vasculature are within normal limits for a portable exam. Patchy bibasilar opacities are present, significantly decreased on the right compared to prior exam. Left lower lobe 3.5 cm cavitary lesion is unchanged. There is minimal blunting of the costophrenic sulci bilaterally. There are no acute osseous or soft tissue abnormalities. Impression: Decreased right basilar atelectasis and effusion. Signed by: Anthony Way on 04/16/2019 8:24 AM
[2019-04-16] MEDS: LISINOPRIL 10 MG TAB PO SCH (09:00)
[2019-04-16] MEDS: METOPROLOL TARTRATE 25 MG TAB PO SCH ×2 (09:00→21:11)
--- NOTE | 2019-04-16 09:14 | Diagnostic Imaging Report ---
Chest ultrasound. History: Pleural effusion. Comparison: Chest x-ray from today. Discussion: Transverse and longitudinal sonographic imaging of the bilateral posterior chest was performed. Small right and trace left pleural effusion are present. IMPRESSION: Small bilateral pleural effusions. Signed by: Anthony Way on 04/16/2019 9:11 AM
[2019-04-16] MEDS: INSULIN REGULAR, HUMAN 100 UNIT/1 ML 3ML VIAL SQ SCH ×4 (09:39→21:48)
[2019-04-16] MEDS: DOCUSATE SODIUM 100 MG CAP PO SCH (13:30)
[2019-04-16] MEDS: FAMOTIDINE 20 MG TAB PO SCH ×2 (13:32→21:09)
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
--- NOTE | 2019-04-16 18:24 | Progress Note ---
DATE: 04/16/2019 Cardiology Progress Note SUBJECTIVE: The patient is seen yesterday also and today I am following the patient also. The patient is not comfortable. No chest pain. One troponin result pending today. The patient's ejection fraction about 30%. The patient has a chronic congestive heart failure, probably related to this type 2 diabetes mellitus. However, the patient did have a non-Q wave myocardial infarction. At this time, the patient does not ST-elevation LA, is a non-Q wave LA. The patient possibly diagnosed pneumonia and positive tuberculosis, waiting for liner checker to make sure it is not a TB. Once results are available; if it is available in a day or two, I will do a coronary angiogram, however, if it is going to postpone we can send her home and bring back as an outpatient also. I discussed with the patient also, the patient also willing to go home and come back as an outpatient. However, review of the report from the liner checker is either way whether TB not TB, who will make a definite decision. However, the patient cardiac-flores the patient is stable. She can be moved out of the ICU to go to [facility]. I believe she is in isolation at this time. We will continue present medication. IMPRESSION: 1. Non-Q wave myocardial infarction. 2. Cardiomyopathy, possibly there may be a diabetic related cardiomyopathy if there is a myocardial infarction. 3. Pneumonia, possible tuberculosis. Pulmonology is working on this etiology. MD ALIYAH Massey/MODL /[id number]
[2019-04-16] MEDS: CEFTRIAXONE SOD 1 GM/NS 50 ML 50 ML IV SCH (21:09)
[2019-04-16] MEDS: SIMVASTATIN 40 MG TAB PO SCH (21:09)
[2019-04-17] VITALS (15 sets, daily range): BP systolic 94–149; BP diastolic 67–110
--- NOTE | 2019-04-17 03:14 | NUR ---
Pulmonary Medicine DATE 04/16/2019 SUBJECTIVE Outside records reviewed 1 AFB sputum negative, PCR performed additional in 2018 Longstanding cavitary pneumonia known CXR and Us with small pleural effusion present (better) REVIEW OF SYSTEMS: No headaches, no rash OBJECTIVE: VITAL SIGNS: vital signs noted, reviewed per the chart record. GENERAL: NAD, alert, calm HEENT: Normocephalic, atraumatic. NECK: Supple, throat midline. Neck wide. RESPIRATORY: Bilateral air entry, rare rhonchi. CARDIOVASCULAR: S1 and S2. No murmurs, rubs, or gallops. ABDOMEN: Soft, nontender, obese. EXTREMITIES: No clubbing, no cyanosis. trace edema. INTEGUMENT: No rash, no purpura. LABORATORY DATA: per EMR IMPRESSION AND PLAN: 1. Cavitary pneumonitis. Possibly chronic based on reports of some initial assessment at outside hospital. Unknown acute components 2. Bilateral pneumonitis. 3. Congestive heart failure with exacerbation. Acute on chronic systolic failure LVEF 25-30%. 4. Large neck size, congested nasopharynx. Significant consideration for LELAND 5. Hypertension. 6. Chronically very uncontrolled diabetes 7. Functionally immunosuppressed state. 8. Anemia. 9. chronically non-adherent to therapy recommendations Airborne precautions Await sputum AFB / regular sputum cultures. Review old records from outside hospital -patient never had bronchoscopy and requires consideration for this which could be outpatient. -await AFB smear (?2 samples sent in) result here --get patient demographics accurately HIV negative LDH 194, sedimentation rate 63, LFTs ok Outpatient in-lab sleep studies are recommended due to advanced heart failure. The patient should have her diabetes and functional immunosuppression controlled over terminal press operator. Thank you very much, Dr. Ram for allowing me a chance to participate in care of Ms. Ramos. Please call for questions.
[2019-04-17 05:20] LABS: BASOPHILS % 0.5 % (0.0-1.0); EOSINOPHILS # (AUTO) 0.3 (0.0-0.4); EOSINOPHILS % 4.2 % (0.0-6.0); HEMOGLOBIN 9.1 g/dL (12.0-16.0); LYMPHOCYTES # (AUTO) 2.4 (1.0-3.2); LYMPHOCYTES % 35.8 % (18.0-39.1); MEAN CORPUSCULAR HEMOGLOBIN 25.9 pg (28-32); MEAN CORPUSCULAR HGB CONC 31.4 g/dL (31-35); MEAN CORPUSCULAR VOLUME 82.6 fL (81-99); MONOCYTES # (AUTO) 0.8 (0.2-0.8); MONOCYTES % 12.4 % (4.4-11.3); NEUTROPHILS # (AUTO) 3.1 (2.1-6.9); NEUTROPHILS % 46.5 % (38.7-80.0); PLATELET COUNT 380 x10e3/uL (140-360); RED BLOOD COUNT 3.51 x10e6/uL (3.6-5.1); RED CELL DISTRIBUTION WIDTH 14.6 % (11.7-14.4)
[2019-04-17 05:41] LABS: ANION GAP 14.2 mmol/L (8-16); BLOOD UREA NITROGEN 15 mg/dL (7-26); BUN/CREATININE RATIO 19 (6-25); CARBON DIOXIDE 25 mmol/L (22-29); CHLORIDE 104 mmol/L (98-107); CREATININE, SERUM 0.77 mg/dL (0.57-1.11); EST GLOMERULAR FILTRATION RATE > 60 ML/MIN (60-); GLUCOSE 177 mg/dL (74-118); POTASSIUM 4.2 mmol/L (3.5-5.1); SODIUM 139 mmol/L (136-145)
[2019-04-17] MEDS: INSULIN REGULAR, HUMAN 100 UNIT/1 ML 3ML VIAL SQ SCH ×4 (07:52→20:59)
[2019-04-17] MEDS: DOCUSATE SODIUM 100 MG CAP PO SCH (08:22)
[2019-04-17] MEDS: FAMOTIDINE 20 MG TAB PO SCH ×2 (08:22→20:59)
--- NOTE | 2019-04-17 08:40 | NUR ---
PATIENT SIGNED INFORMED CONSENT FOR CARDIAC CATHETERIZATION PER DR HARE
[2019-04-17] MEDS: LISINOPRIL 10 MG TAB PO SCH (08:44)
[2019-04-17] MEDS: METOPROLOL TARTRATE 25 MG TAB PO SCH ×2 (08:44→20:59)
[2019-04-17] MEDS ORDERED: FUROSEMIDE INJ 10 MG/ML 4 ML VIAL IV SCH (09:00)
--- NOTE | 2019-04-17 16:15 | NUR ---
PATIENT TRANSPORTED TO [facility] ON CONTINUOUS MONITORING
[2019-04-17] MEDS ORDERED: FENTANYL CITRATE/PF 100MCG/2 ML INJ ONE (16:29)
[2019-04-17] MEDS ORDERED: MIDAZOLAM HCL 2 MG/2 ML VIAL ONE (16:29)
[2019-04-17] MEDS ORDERED: IOPAMIDOL 370 MG/ML 200 ML INFUS..BTL INJ ONE ×2 (16:30→17:10)
[2019-04-17] MEDS ORDERED: HEPARIN SOD/SOD CHLORIDE 2,000 ML ONE (16:30)
[2019-04-17] MEDS ORDERED: SODIUM CHLORIDE 0.9% 1000ML 1,000 ML ONE (16:30)
[2019-04-17] MEDS ORDERED: LIDOCAINE HCL 2% LOCAL 20 ML VIAL ONE (16:30)
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
[2019-04-17] MEDS: ALPRAZOLAM 0.25 MG TAB PO PRN (17:57)
[2019-04-17] MEDS ORDERED: ALPRAZOLAM 0.25 MG TAB ONE (18:00)
[2019-04-17] MEDS: CEFTRIAXONE SOD 1 GM/NS 50 ML 50 ML IV SCH (20:58)
[2019-04-17] MEDS: SIMVASTATIN 40 MG TAB PO SCH (20:59)
[2019-04-17] MEDS: ONDANSETRON HCL INJ 2MG/ML 2ML 2 MG/ML VIAL IV PRN (20:59)
--- NOTE | 2019-04-17 21:35 | NUR ---
Pulmonary Medicine DATE 04/17/2019 SUBJECTIVE sputum AFB x 1 negative reported records review with 2018 AFB sputum x 1 negative for LHc today no new SOB REVIEW OF SYSTEMS: No headaches, no rash OBJECTIVE: VITAL SIGNS: vital signs noted, reviewed per the chart record. GENERAL: NAD, alert, calm HEENT: Normocephalic, atraumatic. NECK: Supple, throat midline. Neck wide. RESPIRATORY: Bilateral air entry, rare rhonchi. CARDIOVASCULAR: S1 and S2. No murmurs, rubs, or gallops. ABDOMEN: Soft, nontender, obese. EXTREMITIES: No clubbing, no cyanosis. trace edema. INTEGUMENT: No rash, no purpura. LABORATORY DATA: cr 0.77, k 4.2. hb 9, plt 380 IMPRESSION AND PLAN: 1. Cavitary pneumonitis. Possibly chronic based on reports of some initial assessment at outside hospital. Unknown acute components 2. Bilateral pneumonitis. 3. Congestive heart failure with exacerbation. Acute on chronic systolic failure LVEF 25-30%. 4. Large neck size, congested nasopharynx. Significant consideration for LELAND 5. Hypertension. 6. Chronically very uncontrolled diabetes 7. Functionally immunosuppressed state. 8. Anemia. 9. chronically non-adherent to therapy recommendations Airborne precautions Await sputum AFB culture --a second sputum AFB sample was submitted by nurse Nielsen-- what happened to this??? ok for hospital discharge from pulmonary point of view patient reasonably recommended for outpatient bronchoscopy HIV negative LDH 194, sedimentation rate 63, LFTs ok Outpatient in-lab sleep studies are recommended due to advanced heart failure. The patient should have her diabetes and functional immunosuppression controlled over assistant terminal manager. Thank you very much, Dr. Ram for allowing me a chance to participate in care of Ms. Ramos. Please call for questions.
[2019-04-18] VITALS (18 sets, daily range): BP systolic 90–138; BP diastolic 56–97
--- NOTE | 2019-04-18 00:24 | Operative Report ---
DATE OF PROCEDURE: 04/17/2019 SURGEON: Stevan Boyce MD PROCEDURE: Left heart catheterization, LV angiogram, coronary angiogram, carotid arteriogram, and left subclavian arteriogram for MALHOTRA arteriogram. INDICATION FOR PROCEDURE: Non-Q-wave myocardial infarction. Congestive heart failure. Pneumonia, possible tuberculosis. This procedure done at [facility] Heart catheterization Lab. Informed consent conscious sedation. The patient came with a shortness of breath, congestive heart failure. Troponin went up to 12 and the patient has some chest pains, where the patient chest pain two days before coming here, she came here last Saturday. At this time, the patient is quite comfortable. The procedure is done at [facility] Heart catheterization Lab. Results of test as follows: This procedure done to the right femoral artery puncture with a conscious sedation with moderate sedation. After preparing the patient's sterilization, draping the patient, the right femoral puncture was done using a Seldinger technique, a six sheath introduced. Results of test as follows: Right coronary arteriogram with dominant right coronary artery, 50% to 60% proximal RCA lesion noted. Left coronary arteriogram shows left main distally is about 40-50 and ostium and proximal left anterior descending artery 95% lesion noted and 90% mid LAD long diffuse disease noted. However, the distal vessel is fairly well seen. The diagonal artery appears to be normal. Circumflex artery ostial stenosis 95%, then proximal stenosis 95% lesion noted, mid circumflex is 80% and OM2 artery is faintly visualized, appears 99% to 100% lesion noted proximal of OM2. Left ventricular angiogram showed ejection fraction 25% with akinesia of the anterior wall and apical wall. Noted mild hypokinesis of the inferior wall noted. No evidence of mitral valve disease or aortic valve disease. Both the carotid arteries are patent, extracranial carotid arteries are normal. Left subclavian artery normal. MALHOTRA as a good-sized MALHOTRA. Right femoral artery is closed Mynx closure device. Recommend aortocoronary bypass surgery. The [facility] be [facility] aortocoronary bypass surgery, discussed with the primary physician, Dr. Ram and I discussed with ICU nurses too. The patient keep in ICU, continue prior medications. MD ALIYAH Massey/ANGELL /[id number]
[2019-04-18] MEDS: ACETAMINOPHEN 325 MG TAB PO PRN (01:32)
[2019-04-18 05:36] LABS: BASOPHILS % 0.3 % (0.0-1.0); EOSINOPHILS # (AUTO) 0.1 (0.0-0.4); EOSINOPHILS % 1.6 % (0.0-6.0); HEMATOCRIT 29.9 % (34.2-44.1); HEMOGLOBIN 9.4 g/dL (12.0-16.0); LYMPHOCYTES # (AUTO) 1.7 (1.0-3.2); LYMPHOCYTES % 19.4 % (18.0-39.1); MEAN CORPUSCULAR HEMOGLOBIN 25.8 pg (28-32); MEAN CORPUSCULAR HGB CONC 31.4 g/dL (31-35); MEAN CORPUSCULAR VOLUME 82.1 fL (81-99); MONOCYTES # (AUTO) 0.9 (0.2-0.8); MONOCYTES % 10.1 % (4.4-11.3); NEUTROPHILS # (AUTO) 5.8 (2.1-6.9); PLATELET COUNT 365 x10e3/uL (140-360); RED BLOOD COUNT 3.64 x10e6/uL (3.6-5.1); RED CELL DISTRIBUTION WIDTH 15.4 % (11.7-14.4)
[2019-04-18 05:55] LABS: ANION GAP 16.1 mmol/L (8-16); BLOOD UREA NITROGEN 15 mg/dL (7-26); BUN/CREATININE RATIO 19 (6-25); CALCIUM 9.3 mg/dL (8.4-10.2); CARBON DIOXIDE 22 mmol/L (22-29); CHLORIDE 105 mmol/L (98-107); EST GLOMERULAR FILTRATION RATE > 60 ML/MIN (60-); GLUCOSE 208 mg/dL (74-118); POTASSIUM 4.1 mmol/L (3.5-5.1); SODIUM 139 mmol/L (136-145)
[2019-04-18] MEDS: INSULIN REGULAR, HUMAN 100 UNIT/1 ML 3ML VIAL SQ SCH ×3 (07:47→16:23)
[2019-04-18] MEDS: DOCUSATE SODIUM 100 MG CAP PO SCH (08:33)
[2019-04-18] MEDS: FAMOTIDINE 20 MG TAB PO SCH (08:34)
[2019-04-18] MEDS: LISINOPRIL 10 MG TAB PO SCH (08:34)
[2019-04-18] MEDS: METOPROLOL TARTRATE 25 MG TAB PO SCH (08:34)
--- NOTE | 2019-04-18 09:28 | NUR ---
PATIENT REPORTS NUMBNESS ON LEFT LEG BUT SHE IS ABLE TO MOVE ALL EXTREMITIES EQUALLY AND BARE WEIGHT. SHE ALSO STATES THAT SHE HASN'T HAD A BM IN 1 MONTH.
[2019-04-18] MEDS: ALPRAZOLAM 0.25 MG TAB PO PRN (10:26)
--- NOTE | 2019-04-18 12:30 | NUR ---
Pulmonary Medicine DATE 04/18/2019 SUBJECTIVE [facility] yesterday with 3 vessel disease. 60% RCA, 95% LAD, 95% LCX LVEF 25% pt with transfer request being done d/w lab, need more AFB specimen REVIEW OF SYSTEMS: No headaches, no rash OBJECTIVE: VITAL SIGNS: vital signs noted, reviewed per the chart record. GENERAL: NAD, alert, calm HEENT: Normocephalic, atraumatic. NECK: Supple, throat midline. Neck wide. RESPIRATORY: Bilateral air entry, rare rhonchi. CARDIOVASCULAR: S1 and S2. No murmurs, rubs, or gallops. ABDOMEN: Soft, nontender, obese. EXTREMITIES: No clubbing, no cyanosis. trace edema. INTEGUMENT: No rash, no purpura. LABORATORY DATA: cr 0.77, k 4.2. hb 9, plt 380 IMPRESSION AND PLAN: 1. Cavitary pneumonitis. Possibly chronic based on reports of some initial assessment at outside hospital. Unknown acute components 2. Bilateral pneumonitis. 3. Congestive heart failure with exacerbation. Acute on chronic systolic failure LVEF 25-30%. 4. Large neck size, congested nasopharynx. Significant consideration for LELAND 5. Hypertension. 6. Chronically very uncontrolled diabetes 7. Functionally immunosuppressed state. 8. Anemia. 9. chronically non-adherent to therapy recommendations Airborne precautions Await sputum AFB culture --send more AFB samples due to transfer issues and OR infection control risk patient reasonably recommended for bronchoscopy at some point-- could be intraoperative or after CABG surgery transfer to OSH for CABG evaluation HIV negative LDH 194, sedimentation rate 63, LFTs ok Outpatient in-lab sleep studies are recommended due to advanced heart failure. The patient should have her diabetes and functional immunosuppression controlled over halfway. Thank you very much, Dr. Ram for allowing me a chance to participate in care of Ms. Ramos. Please call for questions.
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
[2019-04-18] MEDS ORDERED: SIMVASTATIN40 MG PO (15:03)
[2019-04-18] MEDS ORDERED: LOPRESSOR25 MG PO (15:03)
[2019-04-18] MEDS ORDERED: LOVENOX40 MG/0.4 SC (15:03)
[2019-04-18] MEDS ORDERED: ASPIRIN325 MG PO (15:03)
--- NOTE | 2019-04-18 15:39 | NUR ---
assisted patient up to ambulate with walker. patient stood up and lost her balance with left foot. assisted back to bed. applied JAMARI hose. pulses palpable to palpitation. notified Dr Boyce then Dr Noe. no new orders.
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
[2019-04-18] MEDS: ENOXAPARIN SOD INJ 40 MG/0.4 ML SYR SC SCH (18:13)
[2019-04-18] MEDS ORDERED: ENOXAPARIN SOD INJ 40 MG/0.4 ML SYR SC ONE (18:17)
--- NOTE | 2019-04-18 18:35 | NUR ---
patient transported via EMS to [facility] for CABG
[2019-04-19] MEDS ORDERED: ASPIRIN 325 MG TAB PO SCH ×2 (09:00)
== END 2019-04-18 18:49 | disposition short-term general hospital (02) | DRG 280 ==
LOC: FSED 10:52 → ERHOLD 12:54 → MED/SURG2 15:43 → ICU 23:59
PROVIDERS: ADMIT Internal Medicine; ATTEND Internal Medicine
PROC: B3121ZZ Fluoroscopy of Left Subclavian Artery using Low Osmolar Contrast (ICD-10-PCS; principal; 2019-04-17)
PROC: B31R1ZZ Fluoroscopy of Intracranial Arteries using Low Osmolar Contrast (ICD-10-PCS; principal; 2019-04-17)
PROC: B2181ZZ Fluoroscopy of Left Internal Mammary Bypass Graft using Low Osmolar Contrast (ICD-10-PCS; principal; 2019-04-17)
PROC: B2151ZZ Fluoroscopy of Left Heart using Low Osmolar Contrast (ICD-10-PCS; principal; 2019-04-17)
PROC: 4A023N7 Measurement of Cardiac Sampling and Pressure, Left Heart, Percutaneous Approach (ICD-10-PCS; principal; 2019-04-17)
PROC: B2111ZZ Fluoroscopy of Multiple Coronary Arteries using Low Osmolar Contrast (ICD-10-PCS; principal; 2019-04-17)
DX: I21.4 Non-ST elevation (NSTEMI) myocardial infarction (principal); J18.9 Pneumonia, unspecified organism; I40.0 Infective myocarditis; S22.31XA Fracture of one rib, right side, initial encounter for closed fracture; I42.8 Other cardiomyopathies; I10 Essential (primary) hypertension; M62.81 Muscle weakness (generalized); N92.0 Excessive and frequent menstruation with regular cycle; D50.9 Iron deficiency anemia, unspecified; V89.2XXA Person injured in unspecified motor-vehicle accident, traffic, initial encounter; Y93.89 Activity, other specified; Y92.410 Unspecified street and highway as the place of occurrence of the external cause; R91.1 Solitary pulmonary nodule; Z91.19 Patient's noncompliance with other medical treatment and regimen; E78.5 Hyperlipidemia, unspecified; E11.65 Type 2 diabetes mellitus with hyperglycemia; G47.33 Obstructive sleep apnea (adult) (pediatric)
CPT/HCPCS: 36415; 70551; 71045; 71046; 71260; 72141; 76604; 80048; 80053; 80061; 80076; 80307; 81003; 81025; 82550; 82553; 82607; 82728; 82948; 83010; 83036; 83540; 83615; 83735; 83880; 84443; 84466; 84484; 85025; 85379; 85610; 85651; 85730; 86140; 87070; 87116; 87205; 87206; 87390; 93005; 93306; 93458; 93880; 96360; 96372; 99152; 99153; 99284; C1760; G0433; G0435; J0696; J1650; J1756; J1817; J1940; J2001; J2250; J2405; J3010; J7030; J7050; Q9967